=== PATIENT | male | born 1935 | race Caucasian/White ===

== ENCOUNTER → 2017-08-10 12:37 | Outpatient (CLI) | payer MEDICARE, BC ==
[2012-03-08 09:10] VITALS: BMI 30.6
[2017-08-11 10:21] LABS: IMMUNOGLOBULIN A 130 mg/dL (61-437); IMMUNOGLOBULIN G 930 mg/dL (700-1600); IMMUNOGLOBULIN M 166 mg/dL (15-143)
[2017-08-14 06:14] LABS: IMMUNOGLOBULIN E 138 IU/mL (0-100)
== END | disposition home or self-care (01) ==
LOC: D.LAB 12:37
PROVIDERS: Internal Medicine Pulmonary Disease
DX: J44.9 Chronic obstructive pulmonary disease, unspecified (principal)

== ENCOUNTER → 2020-03-12 08:40 | Outpatient (CLI) | payer MEDICARE, BC ==
[2012-03-08 09:10] VITALS: BMI 30.6
== END | disposition home or self-care (01) ==
LOC: D.LAB 08:40
PROVIDERS: ATTEND Internal Medicine Pulmonary Disease
DX: Z11.59 Encounter for screening for other viral diseases (principal)

== ENCOUNTER → 2020-03-15 12:16 | Outpatient (CLI) | payer MEDICARE, BC ==
[2012-03-08 09:10] VITALS: BMI 30.6
== END | disposition home or self-care (01) ==
LOC: D.RT 12:16
PROVIDERS: ATTEND Internal Medicine Pulmonary Disease
DX: J44.9 Chronic obstructive pulmonary disease, unspecified (principal)